=== PATIENT | female | born 1945 | race Caucasian/White ===

== ENCOUNTER 2019-04-09 07:41 | Emergency (ER) | payer MEDICARE ==
[2019-04-09] MEDS ORDERED: Ondansetron ODT TAB* 4 MG SL ONE (08:07)
--- NOTE | 2019-04-09 08:11 | UC ---
UC General HPI - HPI Summary HPI Summary: States past few days she hasn't been feeling well. Intermittent nausea and vomiting with left flank pain. Left flank pain. Has a hx of kidney stones in the past. States she felt like she was having bladder spasms. Last night she could not get comfortable due to discomfort and was feeling very nauseated. No dysuria. No urinary frequency. Feels warm now but normal temp here. Got up at 3:30 am and tried to start her day with coffee but could barely drink anything. Diffuse abdominal discomfort. No diarrhea. MEds; reviewed - History of Current Complaint Chief Complaint: UCAbdominalPain Stated Complaint: L SIDE PAIN Time Seen by Provider: 04/09/19 07:51 Pain Intensity: 3 - Allergy/Home Medications Allergies/Adverse Reactions: Allergies Allergy/AdvReac Type Severity Reaction Status Date / Time ciprofloxacin Allergy Abdominal Verified 04/09/19 07:47 Pain Home Medications: Home Medications Hydrochlorothiazide TAB* [Hydrodiuril TAB*] 25 mg PO DAILY 04/09/19 [History Confirmed 04/09/19] PMH/Surg Hx/FS Hx/Imm Hx Previously Healthy: Yes Cardiovascular History: Hypertension GI/ History: Kidney Stones - Surgical History Surgical History: Yes Surgery Procedure, Year, and Place: tubal ligation; lithotripsy 3 times - Social History Alcohol Use: Occasionally Substance Use Type: None Smoking Status (MU): Never Smoked Tobacco - Immunization History Most Recent Tetanus Shot: not sure Review of Systems All Other Systems Reviewed And Are Negative: Yes Physical Exam Triage Information Reviewed: Yes Appearance: Well-Appearing Vital Signs: Initial Vital Signs Temp 98.4 F 04/09/19 07:48 Pulse 69 04/09/19 07:48 Resp 18 04/09/19 07:48 BP 163/76 04/09/19 07:48 Pulse Ox 94 04/09/19 07:48 Vital Signs Reviewed: Yes ENT: Positive: Pharynx normal Respiratory: Positive: Lungs clear, Normal breath sounds Cardiovascular: Positive: RRR, No Murmur Abdomen Description: Positive: Nontender, Soft, Other: - NO CVA tenderness Diagnostics - Radiology Renal US Radiology Interpretation Completed By: Radiologist Summary of Radiographic Findings: mod severe left hydro, no uretal jets seen. Nonobs right renal calculus. CT scan: 4 mm stone in distal left ureter Course/Dx - Course Course Of Treatment: This is a 74 yr old with N/V and left flank pain, hx of stones U/A: +2 RBCs U/S kidney's: mod-severe left hydronephrosis Zofran 4 mg SL given Spoke with Dr. Arredondo - reviewed CT scan thought there may be a 4 mm stone in distal left ureter and thought direct admission for evaluation in setting of significant hydro and low grade temp was most appropriate Plan Nothing to eat or drink until seen by cleared by physicians at [facility] Concern with low grade temp that this could be infected stone Recommend direct admission, blood culture, labs, IVFs and Antibiotics Keep NPO in case patient clinically worsens, Dr. Minaya will re-evaluate to determine if stent placement is appropriate - Diagnoses Provider Diagnosis: Hydronephrosis, Nephrolithiasis Discharge - Sign-Out/Discharge Documenting (check all that apply): Patient Departure All imaging exams completed and their final reports reviewed: Yes - Discharge Plan Condition: Fair Disposition: TRANS HIGHER LVL OF CARE FAC Patient Education Materials: Kidney Stones (ED) Referrals: Eliot Wyatt MD [Primary Care Provider] - Additional Instructions: Nothing to eat or drink until seen by cleared by physicians at [facility] Concern with low grade temp that this could be infected stone Recommend direct admission, blood culture, labs, IVFs and Antibiotics Keep NPO in case patient clinically worsens, Dr. Minaya will re-evaluate to determine if stent placement is appropriate - Billing Disposition and Condition Condition: FAIR Disposition: Trans Higher Lvl of Care Fac
[2019-04-09 10:06] VITALS: BP 194/83
== END 2019-04-09 11:22 | disposition short-term general hospital (02) ==
LOC: UCEAST 07:41
DX: N20.0 Calculus of kidney (principal); Z87.442 Personal history of urinary calculi
CPT/HCPCS: 74018; 74176; 76775; 81003; 99212; A9270-GY; G0463

== ENCOUNTER 2019-04-09 11:17 | Observation (INO) | payer MEDICARE ==
[2019-04-09] MEDS ORDERED: Ondansetron INJ* 2 MG/ML VIAL IV PRN (12:19)
[2019-04-09] MEDS ORDERED: Morphine INJ* 2 MG/ML 1 ML SYRINGE (TWO MG - NEW SYRINGE VERSION) IV PRN (12:19)
[2019-04-09 13:22] LABS: ABS Eosinophils 0.1 10^3/ul (0-0.6); ABS Lymphocytes 1.2 10^3/ul (1.0-4.8); ABS Monocytes 0.7 10^3/ul (0-0.8); ABS Neutrophils 7.9 10^3/ul (1.5-7.7); Eosinophil % 1.2 %; Hematocrit 45 % (35-47); Hemoglobin 14.7 g/dL (12.0-16.0); Lymphocyte % 12.3 %; Mean Corpuscular HGB Conc 32 g/dL (31-36); Mean Corpuscular Hemoglobin 28 pg (27-31); Mean Corpuscular Volume 87 fL (80-97); Mean Platelet Volume 7.8 fL (7.4-10.4); Nucleated Red Blood Cells % 0.1; Platelet Count 278 10^3/uL (150-450); Red Blood Count 5.23 10^6 /uL (3.70-4.87); Red Cell Distribution Width 14 % (10-15)
[2019-04-09 13:45] LABS: Albumin 3.9 g/dL (3.2-5.2); Albumin/Globulin Ratio 1.1 (1-3); BUN/Creatinine Ratio 13.7 (8-20); Calcium 9.7 mg/dL (8.6-10.3); EGFR African American 47.9 (>60); EGFR Non-African American 39.6 (>60); Globulin 3.5 g/dL (2-4); Potassium 3.7 mmol/L (3.5-5.0); Total Bilirubin 0.7 mg/dL (0.2-1.0); Total Protein 7.4 g/dL (6.4-8.9)
[2019-04-09] MEDS: NS 0.9% 1000 ML** 1,000 ML IV SCH ×2 (14:22→23:31)
[2019-04-09] MEDS: cefTRIAXone(*) 1 GM in NS 0.9% 50 ML* 50 ML IVPB SCH (14:23)
--- NOTE | 2019-04-09 16:07 | HP ---
CC: Dr. Wyatt; Dr. Minaya * HISTORY AND PHYSICAL: DATE OF ADMISSION: 04/09/19 PRIMARY CARE PROVIDER: Dr. Wyatt. CHIEF COMPLAINT: Left flank pain. HISTORY OF PRESENT ILLNESS: Hanh Vergara is a 74-year-old female with history of nephrolithiasis and hypertension, who presented originally to [facility] with complaints of retching for 2 days and left flank pain. The patient was noted to have left-sided hydronephrosis and 4-mm stone in the left ureter. The case was discussed with Dr. Minaya, who recommended for the patient to be directly admitted to [facility]. The patient also had a temperature of 100.1 at [facility]. The patient presented as direct admission at our facility. Currently, she feels discomfort in the left flank. Her nausea and vomiting so far had resolved. She stated that apart from the temperature of 100.1 at [facility], she had been afebrile. She is going to be placed on overnight observation. PAST MEDICAL HISTORY: 1. Hypertension. 2. History of nephrolithiasis in the past. 3. History of tubal ligation. MEDICATIONS: Include: 1. Atenolol 25 mg daily. 2. Hydrochlorothiazide 25 mg daily. ALLERGIES: CIPROFLOXACIN. FAMILY HISTORY: Positive for mother who at the age of 87 with complication of CHF. Father had history of laryngeal cancer, at the age of 91. Brother with history of prostate cancer. SOCIAL HISTORY: The patient denies any tobacco or drug use. She drinks rarely alcohol. She her , Donn, who is her surrogate. REVIEW OF SYSTEMS: Please see history of present illness. All the remaining 12 systems were reviewed with the patient and were otherwise negative. PHYSICAL EXAMINATION GENERAL: The patient is a pleasant 74-year-old female, who is in no acute distress. Alert, awake, and oriented x3. VITAL SIGNS: Blood pressure 128/73, heart rate of 82 and regular, respiratory rate 16, oxygen saturation 96% on room air, temperature 97.5. HEENT: Head atraumatic, normocephalic. Eyes: Pupils are equal, reactive to light and accommodation. Oropharynx: Clear. Mucosa moist. NECK: Supple. No JVD. No bruits bilaterally. RESPIRATORY: Clear to auscultation bilaterally. CARDIOVASCULAR: Regular rate and rhythm. No murmur. ABDOMEN: Soft, nontender. Bowel sounds present in all 4 quadrants. On palpation of bilateral flanks, the patient has left-sided flank tenderness to palpation. EXTREMITIES: There is no edema. Pulses are +2 bilaterally. There is no clubbing or cyanosis. NEUROLOGIC: Speech is clear. Cranial nerves II through XII grossly intact. Motor strength is 5/5 bilaterally. DIAGNOSTIC STUDIES/LAB DATA: Laboratory data showed sodium of 136, potassium 3.7, chloride 101, carbon dioxide 30, BUN 18, creatinine 1.31. Liver function test is unremarkable. Lactic acid was 0.8. White blood cell count of 10.0, hemoglobin of 14.7, hematocrit of 45, and platelets of 278,000. CT of the abdomen and pelvis obtained at [facility] today, impression: "There was a 4-mm calculus in the distal left ureter, causing [id number]-st-ydnsal hydronephrosis. There were 2-mm obstructing calculi within the right kidney. Cholelithiasis." ASSESSMENT AND PLAN: 1. In regards to the patient's hydronephrosis, this was discussed with Dr. Minaya. Because of the size of the calculus, it is likely that the patient will pass it. The patient is going to be placed on overnight observation on intravenous fluids and with pain control and management. We will ask the nursing staff to strain urine. The patient is going to be placed n.p.o. in the morning if she needed to have cystoscopy. I will also repeat bladder ultrasound to evaluate for left ureteral jet as per Dr. Minaya's recommendation. 2. For the patient's hypertension, atenolol is going to be continued. Hydrochlorothiazide is going to be held. 3. The patient's acute kidney injury is likely obstructive due to left-sided hydronephrosis. That will be monitored. 4. For DVT prophylaxis, the patient is going to be placed on heparin subcutaneously. 5. The patient's code status is full. [id number]/[facility] #: [id number] MTDD
--- NOTE | 2019-04-09 19:03 | CONS ---
CC: Dr. Eliot Wyatt; Dr. Minaya * UROLOGY CONSULTATION: DATE OF CONSULT: 04/09/19 REQUESTING PHYSICIAN: Dr. Dana Combs. DIAGNOSES: 1. Left hydronephrosis. 2. Calculus left ureter. HISTORY OF PRESENT ILLNESS: Hanh Vergara is a 74-year-old lady with a history of recurrent renal caliculi. She started having left flank pain radiating to the left lower quadrant about 2 to 3 days ago which got progressively worse and was associated with nausea. She eventually went to the [facility] where imaging including initially an ultrasound revealed severe left hydronephrosis with an absent left ureteral jet. Subsequently, a CT scan was obtained which revealed a 4 mm calculus in the distal left ureter causing the obstruction in addition to right renal caliculi. PAST MEDICAL HISTORY: Significant for: 1. Renal caliculi. 2. Hypertension. MEDICATIONS ON ADMISSION: Atenolol 1 tablet daily (the patient is not sure of dose at the time of this dictation). ALLERGIES AND INTOLERANCES: CIPRO. REVIEW OF SYSTEMS': She is otherwise in excellent health. There is no history of diabetes mellitus or any other major systemic illness. She denies any chest pain or shortness of breath. PHYSICAL EXAMINATION: Reveals a pleasant healthy appearing lady who is currently fairly comfortable. Blood pressure is 140/52, pulse 83 per minute regular, temperature 98.7, oxygen saturation 96% on room air and respiratory rate 16 per minute. The maximum temperature she had was at [facility] where it was 100.1. Cardiovascular exam is regular rate and rhythm. S1 , S2. Lungs are clear bilaterally. Abdomen is soft with very mild left flank tenderness. DIAGNOSTIC STUDIES/LAB DATA: I have reviewed the imaging studies including the ultrasound, the x-ray, and the CT scan and I had a detailed discussion with Mrs. Vergara regarding continuing conservative management at the present time since she is relatively pain free and afebrile. IMPRESSION AND PLAN: My recommendation is to repeat an ultrasound tomorrow to assess for the left ureteral jet, if she does have a left ureteral jet and continues to be relatively pain free and afebrile overnight, then she can be discharged home for outpatient followup. If she starts having worsening pain or increasing temperature, then the next step would be to consider left ureteroscopy, possible laser, and stent insertion. All of her questions were answered and I planned to reassess her again in the morning. [id number]/[facility] #: [id number] GIANNA
[2019-04-09] MEDS: Docusate CAP* 100 MG PO SCH (20:00)
[2019-04-09] MEDS: Acetaminophen TAB* 325 MG PO PRN (20:00)
[2019-04-09] MEDS: Heparin VIAL(*) 5000 UNITS/ML VIAL (FIVE THOUSAND) SUBCUT SCH (22:21)
[2019-04-10] MEDS: Heparin VIAL(*) 5000 UNITS/ML VIAL (FIVE THOUSAND) SUBCUT SCH ×2 (05:39→14:29)
[2019-04-10 06:09] LABS: ABS Eosinophils 0.1 10^3/ul (0-0.6); ABS Lymphocytes 1.1 10^3/ul (1.0-4.8); ABS Monocytes 0.7 10^3/ul (0-0.8); ABS Neutrophils 6.6 10^3/ul (1.5-7.7); Eosinophil % 1.7 %; Hematocrit 39 % (35-47); Hemoglobin 12.8 g/dL (12.0-16.0); Lymphocyte % 12.6 %; Mean Corpuscular HGB Conc 33 g/dL (31-36); Mean Corpuscular Hemoglobin 28 pg (27-31); Mean Corpuscular Volume 85 fL (80-97); Mean Platelet Volume 7.6 fL (7.4-10.4); Platelet Count 257 10^3/uL (150-450); Red Blood Count 4.54 10^6 /uL (3.70-4.87); Red Cell Distribution Width 14 % (10-15); White Blood Count 8.6 10^3/uL (3.5-10.8)
[2019-04-10 06:17] LABS: BUN/Creatinine Ratio 13.7 (8-20); EGFR African American 54.6 (>60); EGFR Non-African American 45.1 (>60); Potassium 3.9 mmol/L (3.5-5.0)
[2019-04-10] MEDS ORDERED: Atenolol TAB* 25 MG PO SCH (09:00)
[2019-04-10] MEDS: Acetaminophen TAB* 325 MG PO PRN (09:20)
[2019-04-10] MEDS: Docusate CAP* 100 MG PO SCH (09:21)
[2019-04-10 11:51] VITALS: BP 129/69
--- NOTE | 2019-04-10 12:20 | PN ---
Subjective Date of Service: 04/10/19 Interval History: Pt feels well, c/o still slight discomfort in left flank, but pain resolved. denies hematuria. Objective Active Medications: Acetaminophen (Tylenol Tab*) 650 mg PO Q4H PRN PRN Reason: FEVER/PAIN Last Admin: 04/10/19 09:20 Dose: 650 mg Atenolol (Tenormin Tab*) 25 mg PO DAILY [facility] Last Admin: 04/10/19 09:21 Dose: 25 mg Docusate Sodium (Colace Cap*) 100 mg PO BID [facility] Last Admin: 04/10/19 09:21 Dose: 100 mg Heparin Sodium (Porcine) (Heparin Vial(*)) 5,000 units SUBCUT Q8HR [facility] Last Admin: 04/10/19 05:39 Dose: Not Given Sodium Chloride (Ns 0.9% 1000 Ml) 1,000 mls @ 125 mls/hr IV PER RATE [facility] Stop: 04/10/19 20:29 Last Admin: 04/09/19 23:31 Dose: 125 mls/hr Ceftriaxone Sodium 1 gm/ (Sodium Chloride) 50 mls @ 200 mls/hr IVPB Q24H [facility] Last Admin: 04/09/19 14:23 Dose: 200 mls/hr Morphine Sulfate (Morphine Inj (Syringe))*) 1 mg IV Q4H PRN PRN Reason: PAIN - MILD Last Admin: 04/10/19 03:01 Dose: 1 mg Ondansetron HCl (Zofran Inj*) 4 mg IV Q4H PRN PRN Reason: NAUSEA/VOMITING Last Admin: 04/10/19 02:06 Dose: 4 mg Vital Signs - 8 hr 04/10/19 04/10/19 04/10/19 05:38 07:59 11:50 Temperature 98.3 F 98.2 F Pulse Rate 72 59 Respiratory 18 24 18 Rate Blood Pressure 158/79 129/69 (mmHg) O2 Sat by Pulse 96 97 Oximetry Oxygen Devices in Use Now: None Appearance: 74 yo F in nAD, aAOx3 Eyes: No Scleral Icterus, PERRLA Ears/Nose/Mouth/Throat: NL Teeth, Lips, Gums, Mucous Membranes Moist Neck: NL Appearance and Movements; NL JVP, Trachea Midline Respiratory: Symmetrical Chest Expansion and Respiratory Effort, Clear to Auscultation Cardiovascular: NL Sounds; No Murmurs; No JVD Abdominal: NL Sounds; No Tenderness; No Distention, - - no CVA tenderness b/l Lymphatic: No Cervical Adenopathy Extremities: No Edema, No Clubbing, Cyanosis Skin: No Rash or Ulcers, No Nodules or Sclerosis Neurological: Alert and Oriented x 3, NL Muscle Strength and Tone Result Diagrams: 04/10/19 05:40 04/10/19 05:40 Assess/Plan/Problems-Billing Assessment: 74 yo F with h/o HTN presents with left hydronephrosis - Patient Problems (1) Hydronephrosis Comment: due to 4 mm left ureteral stone Likely passed it, although nothing was found on strained urine As per d/w DR. dempsey: cont Ceftriaxone for now, awaiting bladder US to eval for L ureteral jet Likely d/c later on today (2) HTN (hypertension) Comment: controled, cont Atenolol, holding HCTZ (3) DVT prophylaxis Comment: HSQ Status and Disposition: OBV
--- NOTE | 2019-04-10 14:27 | DS ---
CC: Dr. Wyatt; Dr. Minaya from Urology * DISCHARGE SUMMARY: DATE OF ADMISSION: 04/09/19 DATE OF DISCHARGE: 04/10/19 PRIMARY CARE PROVIDER: Dr. Wyatt. DISPOSITION AT DISCHARGE: Home. CONDITION AT DISCHARGE: Stable. DISCHARGE DIAGNOSES: 1. Hydronephrosis due to left ureteral calculus. 2. Mild elevation of the patient's creatinine. SECONDARY DIAGNOSES: 1. Hypertension. 2. History of nephrolithiasis. MEDICATIONS AT DISCHARGE: 1. Atenolol 20 mg daily. 2. Hydrochlorothiazide 25 mg daily. 3. Cefdinir 300 mg p.o. b.i.d. for a total of 4 days, to complete 5 days treatment of cephalosporin and then stop. LABORATORY DATA AND STUDIES PERFORMED DURING THE HOSPITAL STAY: Includes: On : White blood cell count of 8.56, hemoglobin of 12.8, hematocrit of 39, and platelets of 257. Sodium 140, potassium 3.9, chloride 107, carbon dioxide 25, BUN 16, creatinine 1.17. Bladder ultrasound obtained on 04/10/19. Impression: "There are bilateral ureterovesical jets present." HOSPITALIZATION COURSE: Hanh Vergara is a 74-year-old female with a history of nephrolithiasis, who presented to the hospital, directed from [facility] where a CT was obtained and showed left ureteral stone with left- sided hydronephrosis. The stone was 4 mm in diameter and her urinalysis was grossly unremarkable. The patient had a temperature of 100.1 degrees and she was directed for direct admission to our [facility]. The patient had pain in the left flank on evaluation at admission. This was discussion with Dr. Minaya, the patient's urologist who recommended intravenous fluids as well as pain control and treatment with broad spectrum antibiotics. On the morning of discharge, the patient's pain resolved. She had been straining her urine and no stone was found, but either way, her pain resolved. She had no hematuria, her serum creatinine is improved. As per Dr. Minaya's recommendation , a bladder ultrasound was obtained to evaluate for ureteral jets and those were both present. At discharge, the patient is going to be placed on cefdinir to complete a 5-day treatment for possibility of urinary tract infection in the area above the stone. Once again, the patient's initial urinalysis was unremarkable, but the patient had low-grade fevers and there is a suspicion of infected urine above the stone. The patient was offered narcotic pain medications at discharge, but she refused stating that she does not have any pain. PHYSICAL EXAMINATION: For physical exam at discharge, please see daily progress notes. At discharge, the patient is recommended to follow up with Dr. Wyatt in 4 to [address] to [address] Dr[address] Minaya's office after the weekend on Saturday for an appointment that week. Please note that this is a short summary of the patient's hospital stay, please refer to further medical records for details. [id number]/[facility] #: [id number] GIANNA
[2019-04-10] MEDS: cefTRIAXone(*) 1 GM in NS 0.9% 50 ML* 50 ML IVPB SCH (14:29)
== END 2019-04-10 14:20 | disposition home or self-care (01) ==
LOC: MED 11:42
PROVIDERS: ADMIT Internal Medicine; ATTEND Internal Medicine
DX: N13.2 Hydronephrosis with renal and ureteral calculous obstruction (principal); R79.89 Other specified abnormal findings of blood chemistry; I10 Essential (primary) hypertension; Z87.442 Personal history of urinary calculi
CPT/HCPCS: 36415; 76857; 80048; 80053; 83605; 85025; 87040; 96361; 96372; 96374; 96375; A9270-GY; G0378; J0696; J1644; J2270; J2405

== ENCOUNTER → 2019-05-04 08:46 | Day surgery (SDC) | payer MEDICARE ==
--- NOTE | 2019-04-30 17:58 | HP ---
CC: Dr. Wyatt * ADMITTING HISTORY AND PHYSICAL: DATE OF OPERATION: 05/04/19 PREOPERATIVE DIAGNOSES: 1. Calculus, left ureter. 2. Left hydronephrosis and hydroureter. PLANNED PROCEDURE: Left ureteroscopy, possible laser, and stent insertion. SURGEON: Dr. Minaya. HISTORY OF PRESENT ILLNESS: Hanh Vergara is a 74-year-old lady, who was evaluated in the hospital about 2 weeks ago following an episode of left flank pain. At that time, she was noted to have left hydronephrosis secondary to a 4 mm calculus in the left distal ureter. She was managed conservatively and was sent home and had been doing reasonably well. A followup renal ultrasound done on 04/30/19 revealed persistent significant left hydronephrosis with a persistently dilated left proximal ureter. She is now being brought in for left ureteroscopy. PAST MEDICAL HISTORY: Significant for: 1. Renal calculi. 2. Hypertension. MEDICATIONS ON ADMISSION: 1. Atenolol 25 mg daily. 2. Hydrochlorothiazide 12.5 mg daily. ALLERGIES: No known drug allergies (had leg cramps with Levaquin and Cipro). FAMILY HISTORY: Negative for stones. SOCIAL HISTORY: Smoking history: She is a nonsmoker. REVIEW OF SYSTEMS: She is otherwise in excellent health. There is no history of diabetes mellitus or any other major systemic illness. She denies any chest pain or shortness of breath. PHYSICAL EXAMINATION GENERAL: Reveals a pleasant, middle-aged lady. VITAL SIGNS: Blood pressure is 124/80, pulse 65 per minute and regular, temperature 97.8, oxygen saturation 97% on room air. LUNGS: Clear bilaterally. CARDIOVASCULAR: Regular rate and rhythm. S1, S2. ABDOMEN: Soft with mild left flank tenderness. IMPRESSION: A 74-year-old lady, who has had persistent left hydronephrosis, now for the last several weeks, secondary to a calculus in the left distal ureter. PLAN: Planned procedure is left ureteroscopy, possible laser, and stent insertion. I discussed the procedure in detail including possible risks and she would like to proceed as planned. [id number]/[facility] #: [id number] MTDD
[~2019-05-04 08:46] MED LIST: Buffered Lidocaine 1% SYRIN* 1 ML/SYRINGE INTRADERM ONE; Dexamethasone IV* 4 MG/ML 1 ML (4 MG) ONE; EPHEDrine (Pressors)* 50 MG/ML VIAL ONE; Famotidine IV* 10 MG/ML 2 ML (20 mg) IV ONE; Famotidine IV* 10 MG/ML 2 ML (20 mg) ONE; HYDROmorphone INJ1* 1 MG/ML SYRINGE IV PRN; Iohexol 180 (CONTRAST) 10 ML SDV IV ONE; KETAMINE HCL* 50 MG/ML 10 ML VIAL ONE; Lactated Ringers 1000 ML Bag* 1,000 ML IV SCH; Lidocaine 2% PF * 5 ML VIAL ONE; Midazolam* 1 MG/ML 5 ML VIAL (5 MG) ONE; Naloxone* 0.4 MG/ML 1 ML VIAL IV PRN; Ondansetron INJ* 2 MG/ML VIAL IV PRN; Ondansetron INJ* 2 MG/ML VIAL ONE; Propofol* 10 MG/ML 20 ML BTL ONE; cefTRIAXone(*) 2 GM ADDV.VIAL IVPB ONE; fentaNYL* 50 MCG/ML 2 ML VIAL (100 MCG VIAL) IV PRN; fentaNYL* 50 MCG/ML 2 ML VIAL (100 MCG VIAL) ONE; oxyCODONE/Acetamin 5/325 MG* TAB PO PRN
[2019-05-04 12:05] VITALS: BP 176/82
--- NOTE | 2019-05-04 13:19 | OP ---
CC: Dr. Eliot Wyatt * DATE OF OPERATION: 05/04/19 - [facility] DATE OF : 43 SURGEON: Bruce Minaya MD ANESTHESIOLOGIST: Dr. Richardson. ANESTHESIA: General. PRE-OP DIAGNOSES: 1. Left hydronephrosis and hydroureter. 2. Calculus, left ureter. POST-OP DIAGNOSES: 1. Left hydronephrosis and hydroureter. 2. Calculus, left ureter. OPERATIVE PROCEDURE: Cystoscopy, left retrograde pyelogram, left ureteroscopy and stone extraction, and left stent insertion. COMPLICATIONS: None. STENT USED: 8-Maltese stent, left ureter. OPERATIVE FINDINGS: Two calculi impacted in the left distal ureter with severe hydronephrosis and proximal hydroureter. POSTOPERATIVE CONDITION: Stable. INDICATIONS: Hanh Vergara is a 74-year-old lady who has had a calculus in the left ureter for several weeks leading to persistent left hydronephrosis. DESCRIPTION OF PROCEDURE: After induction of general anesthesia, she was placed in dorsal lithotomy position. Sequential compression devices were in place and functioning. Initial cystoscopy revealed normal appearing bladder with no evidence of any suspicious bladder lesions noted. Left retrograde pyelogram revealed severe left hydronephrosis with a markedly dilated tortuous left ureter. A 6-Maltese semi-rigid ureteroscope was introduced and advanced under direct vision. About 5 to 6 cm above the ureterovesical junction, two calculi were noted to be impacted with significant surrounding edema and inflammation. These were carefully disengaged from their area of adherence to the urothelium and were separately removed using a three-pronged grasper. There were no remaining calculi at the end of the procedure within the ureter and an 8-Maltese stent was introduced and positioned under fluoroscopy with good proximal and distal positioning obtained. Because of the significant degree of impaction, I am concerned that she may be at risk for a stricture and I plan to leave the stent in for at least 3 to 4 weeks to minimize that potential risk. The patient tolerated the procedure satisfactorily and was transferred back to the recovery area in stable condition. [id number]/[facility] #: [id number] MTDD
== END | disposition home or self-care (01) ==
LOC: OR 08:46
PROVIDERS: ATTEND Urology
DX: N13.2 Hydronephrosis with renal and ureteral calculous obstruction (principal); I10 Essential (primary) hypertension
CPT/HCPCS: 74420; 82365; 88300; C1876; J0696; J1100; J2250; J2405; J2704; J3010